=== PATIENT | male | born 2005 | race Caucasian/White ===

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

== ENCOUNTER 2024-07-19 18:35 | Emergency (ER) | payer SELFPAY ==
[2024-07-19 18:36] VITALS: BP 121/63; PULSE 104; RESP 18; TEMP 37.1; O2SAT 100; BMI 28.0
[2024-07-19 18:38] VITALS: BP 121/63; PULSE 104; RESP 18; TEMP 36.9; O2SAT 100
--- NOTE | 2024-07-19 19:16 | CT_ITS ---
PROCEDURE: ORB SELLA POST FOSSA EAR W/CON REASON FOR EXAM: Popped pimple right eye; swollen. TECHNIQUE: CT of the orbits with contrast. COMPARISON: None. FINDINGS: Globes: The globes are intact. Extraocular Muscles: Normal sizes and symmetric. Orbits: No retro-orbital mass, hemorrhage, edema, or inflammatory process. Lacrimal Glands: Normal sizes and symmetric. Bones: No fracture. Right maxillary sinus retention cyst. Marked soft tissue swelling overlying the nasal bone and right orbit. Peripherally enhancing fluid collection which measures 22 by 8 mm overlying the right orbit suspicious for an abscess. CT/Orb Sella Post Fossa Ear W/CON IMPRESSION: Preseptal cellulitis with a superficial abscess. No evidence of orbital cellul itis. One or more dose reduction techniques were used (e.g., Automated exposure contr ol, adjustment of the mA and/or kV according to patient size, use of iterative reconstruction technique). Reading Location: [id number]
[2024-07-19 19:38] LABS: Absolute Lymphocyte Count 2.37 X10^3/uL (0.83-4.51); Absolute Neutrophil Count 5.2 X10^3/uL (2.0-7.7); Basophil# 0.03 X10^3/uL; Basophil% 0.3 % (0-1); Eosinophil# 0.07 X10^3/uL; Eosinophils% 0.8 % (0-5); Hemoglobin 14.5 g/dL (13.0-16.5); Lymphocyte # 2.37 X10^3/ul (0.83-4.51); Mean Corpuscular Hgb 28.4 pg (27.0-32.0); Mean Corpuscular Volume 86.3 fL (80-94); Mean Platelet Vol. 9.7 fl (6.2-12.0); Monocyte# 1.11 X10^3/uL; Monocyte% 12.7 % (0-10); NRBC Flagged by Analyzer 0 % (0-5); Neutrophil # 5.17 X10^3/uL (2.7-7.7); Platelet Count 280 K/mm3 (150-450); RBC Distribution Width CV 13.5 % (11.6-14.6); RBC Distribution Width SD 42.2 fl (35.1-43.9); White Blood Count 8.8 K/mm3 (4.4-11.0)
[2024-07-19 20:01] LABS: AST(SGOT) 23 U/L (15-37); Alanine Aminotransfer ALT/SGPT 40 U/L (16-61); Alkaline Phosphatase 104 U/L (45-117); Anion Gap 6 (5-15); BUN 14 mg/dL (7-18); BUN/Creat Ratio 13.1 RATIO (10-20); Calcium,Total 9.3 mg/dL (8.5-10.1); Chloride 105 mmol/L (98-107); Creatinine, Serum 1.07 mg/dL (0.70-1.30); EST Glomerular Filtration Rate 93 mL/min (>60); Est Glom Filt Rate - Afr Amer 112 mL/min (>60); Estimated Creatinine Clearance 116.01 ml/min; Glucose 104 mg/dL (74-106); Potassium 4.2 mmol/L (3.5-5.1); Sodium Level 138 mmol/L (136-145)
--- NOTE | 2024-07-19 20:04 | EDS_ITS ---
HPI History of Present Illness Chief Complaint: Eye Problem Informant: patient and parent Narrative Narrative: 18-year-old male presenting to the emergency room with the chief complaint of right eye swelling. Patient states that about a week ago he developed a pimple just beneath his eyebrow. He attempted to squeeze it but nothing came out and it gradually started to swell and turn red. Now he states the upper lid is basically close to his vision. Swelling continues. He is continue to try to get anything out of it but cannot. Had a similar occurrence on the left medial side as well which has resolved. No reported fevers. He also notes a history of having an incision and drainage of a MRSA abscess on his right forearm. [facility] Medical History no medical history Home Medications ?Medication ?Instructions ?Recorded ?Last Taken ?Type oxycodone-acetaminophen 5 mg-325 1 tab PO Q6H PRN PRN Pain 3 days 07/19/24 Unknown Rx mg tablet #12 TABLETS sulfamethoxazole 800 1 tab PO BID #20 TABLETS Unknown Rx mg-trimethoprim 160 mg tablet Allergy/AdvReac Type Severity Reaction Status Date / Time amoxicillin Allergy Hives Verified 07/19/24 18:36 Social History Smoking Status: Unknown if ever smoked ROS ROS ED Constitutional Constitutional ED: Denies chills, fever(s) or weight loss Eyes Eyes: Reports other Details: Right periorbital swelling redness ; Denies change in vision or diplopia ENT ENT ED: Denies ear pain, rhinorrhea or sore throat Cardiovascular Cardiovascular: Denies chest pain, orthopnea, palpitations or racing heartbeat Respiratory/Chest Respiratory/Chest: Denies cough, dyspnea or orthopnea Gastrointestinal Gastrointestinal: Denies abdominal pain, diarrhea, nausea or vomiting Genitourinary Genitourinary ED: Denies dysuria, hematuria or urinary frequency Musculoskeletal Musculoskeletal: Denies arthralgias or myalgias Integumentary Denies abscess or rash Neurologic Neurologic: Denies headache(s) or weakness Psychiatric Psychiatric: Denies anxiety, depression, suicidal ideation or suicidal thoughts Endocrine Endocrinology: Denies polydipsia, polyphagia or polyuria Allergic/Immunologic Allergic/Immunologic ED: Denies mouth swelling, tongue swelling or urticaria EXAM Physical Exam Const Vital Signs: 07/19/24 18:36 07/19/24 18:38 Temperature 98.7 F 98.4 F Temperature Source Temporal Temporal Pulse Rate 104 H 104 H Respiratory Rate 18 18 Blood Pressure 121/63 H 121/63 H Blood Pressure Mean 82 82 Pulse Ox 100 100 Oxygen Delivery Method Room Air Room Air Positive well nourished and well developed General Appearance ED: well developed HEENT Reports normocephalic, head/scalp atraumatic and moist mucous membranes Eyes PERRL and EOMs intact bilaterally Eyes Narrative: The right eye when I open the eyelids shows normal conjunctiva extraocular motions are intact and painless pupil constricts to light. The right upper lid is swollen with induration particularly medially and surrounding erythema. This extends up to the level of the eyebrow. Neck no lymphadenopathy, supple and no JVD Resp normal respiratory effort and clear to auscultation bilaterally Cardio regular rate, regular rhythm and no murmurs GI normal to inspection, nondistended, normoactive bowel sounds and non-tender Palpation: soft Back/Spine no CVA tenderness and normal ROM Extremity normal to inspection General Extremety ED: Negative for edema General Extremity: Negative for edema Neuro oriented x3 and CN's II-XII intact bilaterally Sensorium / Orientation: alert Motor Exam: strength 5/5 throughout Psych mental status grossly normal Mood & Affect: Negative for depressed or tearful Skin no rashes or lesions noted and no wounds MDM MDM MDM Narrative Medical decision making narrative: Differential diagnosis includes but not limited to preseptal cellulitis orbital cellulitis abscess. White count 8.8 hemoglobin 14.5 platelet count is 280. Normal creatinine CT of the orbits demonstrates a abscess of the upper eyelid with findings consistent with preseptal cellulitis. I spoke with ophthalmology who agrees with incision and drainage. Let was applied to the eyelid. After ample time I ultrasounded the area define the area of the abscess closest to the skin. 1% lidocaine was used to further anesthetize the area. A stab incision was made with an 11 blade with resultant expression of a large amount of pus. A culture was sent for culture and sensitivities. Because of his prior history of MRSA I would be placing him on Bactrim as well as some pain medication. He will follow-up with ophthalmology return instructions given patient and family are comfortable with the plan. History & Record Review Discussion w/independent historian: Patient and Family Lab Data Attestation: I reviewed the patient's lab results. Labs: Laboratory Results - last 24 hr 07/19/24 19:25 WBC 8.8 RBC 5.10 Hgb 14.5 Hct 44.0 MCV 86.3 MCH 28.4 MCHC 33.0 RDW Std Deviation 42.2 RDW Coeff of Nohemy 13.5 Plt Count 280 MPV 9.7 Immature Gran % (Auto) 0.200 Neut % (Auto) 59.0 Lymph % (Auto) 27.0 [place] % (Auto) 12.7 H Eos % (Auto) 0.8 Baso % (Auto) 0.3 Absolute Neuts (auto) 5.2 Absolute Lymphs (auto) 2.37 Nucleated RBC % 0 Sodium 138 Potassium 4.2 Chloride 105 Carbon Dioxide 28.0 Anion Gap 6 BUN 14 Creatinine 1.07 Estim Creat Clear Calc 116.01 Est GFR (MDRD) Af Amer 112 Est GFR (MDRD) Non-Af 93 BUN/Creatinine Ratio 13.1 Glucose 104 Calcium 9.3 Total Bilirubin 0.60 AST 23 ALT 40 Alkaline Phosphatase 104 Total Protein 8.0 Albumin 4.0 Globulin 4.0 Albumin/Globulin Ratio 1.0 Radiography Diagnostic Testing: Clinical Impression(s) from Imaging Studies CT Orbit Sella Inner 07/19/24 19:16 IMPRESSION: Preseptal cellulitis with a superficial abscess. No evidence of orbital cellulitis. One or more dose reduction techniques were used (e.g., Automated exposure control, adjustment of the mA and/or kV according to patient size, use of iterative reconstruction technique). Reading Location: [facility] Discharge Plan Triage Chief Complaint: Eye Problem ED Provider: Ramakrishna Barajas Dx/Rx/DC Orders Clinical Impression: Abscess of eyelid, Preseptal cellulitis of right eye Instructions: ED Abscess Incision And Drainage, ED Periorbital Cellulitis Prescriptions: New oxycodone-acetaminophen 5-325 mg tablet 1 tab PO Q6H PRN PRN (Reason: Pain) 3 Days Qty: 12 0RF sulfamethoxazole-trimethoprim 800-160 mg tablet 1 tab PO BID Qty: 20 0RF Primary Care Provider: Ramone Diamond Referrals: Diego Stewart MD [Med Staff - Active Staff] - As soon as possible Ramone Diamond MD [Primary Care Provider] - Print Language: [place] Disposition Disposition: Home, Self Care Discharge Date/Time: 07/19/24 22:18
[2024-07-19] MEDS: Lidocaine 1% (20 ml mdv) 20 ML Vial INFILT (20:50)
[2024-07-19] MEDS: Lidocaine/Epi/Tetracaine 50 ML 1 APPLIC TOPICAL (20:50)
[2024-07-19 21:10] VITALS: BP 150/100; PULSE 89; RESP 15; O2SAT 100
[2024-07-19 21:54] VITALS: BP 144/70; PULSE 85; RESP 16; TEMP 36.6; O2SAT 99
[2024-07-19] MEDS: Ketorolac 30 MG/ML Syringe IV (22:07)
[2024-07-19] MEDS: Smz/Tmp Ds Tablet 1 TABLET PO (22:07)
== END 2024-07-19 22:18 | disposition home or self-care (01) ==
PROVIDERS: Emergency Provider Emergency Medicine; PCP Family Medicine; Referring Provider Emergency Medicine; Visit Provider Emergency Medicine
DX: H00.034 Abscess of left upper eyelid (principal); L03.213 Periorbital cellulitis; Z88.0 Allergy status to penicillin; Z86.14 Personal history of Methicillin resistant Staphylococcus aureus infection
CPT/HCPCS: 67700; 70481; 80053; 85025; 87070; 87077; 87186; 87205; 96374; 99283; Q9967